=== PATIENT | female | born 1995 | race Caucasian/White ===

== ENCOUNTER 2017-06-27 18:38 | Emergency (ER) | payer OTHER ==
[~2017-06-27 18:38] MED LIST: CETI10 PO
[2017-06-27 18:50] VITALS: BP 145/74; PULSE 117; RESP 16; TEMP 100.1; O2SAT 97
--- NOTE | 2017-06-27 20:02 | PD ---
HPI Chief Complaint: Cold / Flu Symptoms Time Seen by Provider: 19:34 Travel History International Travel<30 days: No Contact w/Intl Traveler<30days: No Traveled to known affect area: No History of Present Illness HPI 22-year-old female presents to the emergency department complaining of cough, congestion, fever, and sore throat since yesterday. States that she has had a fever up to 101.8 that decreases with Advil. Says her throat is painful with swallowing but denies drooling or other issues. States she has occasional yellow phlegm with her cough. Patient denies shortness breath, chest pain, nausea, vomiting, diarrhea. Denies abdominal pain, back pain. States that she has been feeling well otherwise. States that she has been drinking and eating normally. States she does have sick contacts. [facility] Social History Alcohol Use: No Tobacco Use: No Allergies-Medications (Allergen,Severity, Reaction): Coded Allergies: penicillin G (Unverified Allergy, Unknown, 06/27/17) Reported Meds & Prescriptions Reported Meds & Active Scripts Active Tamiflu (Oseltamivir Phosphate) 75 Mg Cap 75 Mg PO DAILY 10 Days Reported Zyrtec 10 Mg Tab (Cetirizine HCl) 10 Mg Tab 10 Mg PO DAILY Review of Systems Except as stated in HPI: all other systems reviewed are Neg Physical Exam Narrative GENERAL: Well-developed well-nourished in no apparent distress SKIN: Focused skin assessment warm/dry. HEAD: Atraumatic. Normocephalic. EYES: Pupils equal and round. No scleral icterus. No injection or drainage. ENT: No nasal bleeding or discharge. Mucous membranes pink and moist. Mild tonsillar enlargement without exudate or erythema NECK: Trachea midline. No JVD. No lymphadenopathy CARDIOVASCULAR: Regular rate and rhythm. No murmur appreciated. RESPIRATORY: No accessory muscle use. Clear to auscultation. Breath sounds equal bilaterally. GASTROINTESTINAL: Abdomen soft, non-tender, nondistended. No CVA tenderness MUSCULOSKELETAL: No obvious deformities. No clubbing. No cyanosis. No edema. NEUROLOGICAL: Awake and alert. No obvious cranial nerve deficits. Motor grossly within normal limits. Normal speech. PSYCHIATRIC: Appropriate mood and affect; insight and judgment normal. Data Data Last Documented VS Vital Signs Date Time Temp Pulse Resp B/P (MAP) Pulse Ox O2 Delivery O2 Flow Rate FiO2 06/27/17 18:50 100.1 117 16 145/74 (97) 97 Orders Orders Influenzae A/B Antigen (06/27/17 19:28) Group A Rapid Strep Screen (06/27/17 19:28) Strep Culture (Group A) (06/27/17 19:30) Acetaminophen (Tylenol) (06/27/17 20:45) Ed Discharge Order (06/27/17 21:23) MDM Medical Decision Making Medical Screen Exam Complete: Yes Emergency Medical Condition: Yes Differential Diagnosis Viral syndrome, influenza, upper respiratory infection Narrative Course 22-year-old female presents to the emergency department complaining of cough, congestion, fever, and sore throat since yesterday. States that she has had a fever up to 101.8 that decreases with Advil. Says her throat is painful with swallowing but denies drooling or other issues. States she has occasional yellow phlegm with her cough. Patient denies shortness breath, chest pain, nausea, vomiting, diarrhea. Denies abdominal pain, back pain. States that she has been feeling well otherwise. States that she has been drinking and eating normally. States she does have sick contacts. Vital signs- mildly tachycardic, temperature 100.1. Tylenol administered for fever. Strep and flu negative. Patient does have sick contacts and likely has a viral syndrome. Patient will be prescribed Tamiflu for prophylaxis. Pt advised to follow up with her PCP. Encourage fluid intake and nutritious diet. Return to the emergency department for worsening or persistent symptoms. Diagnosis Primary Impression: Viral syndrome Referrals: Primary Care Physician Departure Forms: Tests/Procedures, Work Release Enter return to work date: Jun 30, 2017 Additional Instructions: Follow-up with primary care physician this week. If your symptoms persist or worsen return to the emergency department Remain active as tolerated to prevent worsening of your symptoms. Ensure you have adequate fluid intake and nutritious diet. You may alternate tylenol or motrin per package instructions for your symptoms. You may take Tamiflu as prophylaxis as you do not have the flu today. Scripts Oseltamivir (Tamiflu) 75 Mg Cap 75 MG PO DAILY for Mgmt Viral Infection for 10 Days, #10 CAP 0 Refills Prov: Lorri Sosa 06/27/17 Disposition: 01 DISCHARGE HOME Condition: Stable Lorri Sosa Jun 27, 2017 20:02
[2017-06-27] MEDS ORDERED: ACETAMINOPHEN 500 MG CPLT PO ONE (20:45)
[2017-06-27] MEDS ORDERED: OSEL75 PO (21:22)
== END 2017-06-27 21:59 | disposition home or self-care (01) ==
LOC: PHEFT 18:38
DX: B34.9 Viral infection, unspecified (principal); R00.0 Tachycardia, unspecified; Z79.899 Other long term (current) drug therapy; Z88.0 Allergy status to penicillin
CPT/HCPCS: 87081; 87804; 87880; 99283